=== PATIENT | female | born 1980 | race Caucasian/White ===

== ENCOUNTER → 2016-05-17 | Outpatient (CLI) | payer BC, OTHER ==
[~2016-05-17] MED LIST: AMPH20TA2 PO; FLUO20CA35 PO
== END | disposition home or self-care (01) ==
LOC: C.PAPS 08:31
PROVIDERS: ATTEND Obstetrics & Gynecology
DX: Z01.419 Encounter for gynecological examination (general) (routine) without abnormal findings (principal)

== ENCOUNTER → 2016-07-11 | Outpatient (CLI) | payer BC ==
--- NOTE | 2016-07-11 13:13 | DIAGNOSTIC IMAGING REPORT ---
THYROID ULTRASOUND HISTORY: Enlarged thyroid. COMPARISON: None. FINDINGS: Right lobe: 6.1 x 2.1 x 1.9 cm. There are few subcentimeter hypoechoic nodules with the largest in the lower pole measuring 5 mm. Left lobe: 5.3 x 1.5 x 1.5 cm. There are few subcentimeter hypoechoic nodules/cysts measuring up to 3 mm. Isthmus: 4 mm in thickness. No nodules. IMPRESSION: A few subcentimeter hypoechoic nodules/cysts measuring up to 5 mm. These do not meet sonographic criteria for biopsy. Electronically signed by: Derik Hubbard M.D. 07/11/2016 1:12 PM Dictated Date/Time: 07/11/2016 1:01 PM
== END | disposition home or self-care (01) ==
PROVIDERS: ATTEND Nurse Practitioner Adult Health
DX: E01.0 Iodine-deficiency related diffuse (endemic) goiter (principal)

== ENCOUNTER → 2016-09-10 | Outpatient (CLI) | payer BC ==
[2016-09-12 15:42] LABS: MICROSOMAL AB 1 IU/ML (<9)
== END | disposition home or self-care (01) ==
LOC: C.LABPBG 12:26
PROVIDERS: ATTEND Nurse Practitioner Adult Health
DX: E04.2 Nontoxic multinodular goiter (principal); R44.0 Auditory hallucinations

== ENCOUNTER → 2016-09-13 | Outpatient (CLI) | payer BC ==
[~2016-09-13] MED LIST changes: +GADAVIST IV PRN
--- NOTE | 2016-09-13 11:50 | DIAGNOSTIC IMAGING REPORT ---
MRI OF THE BRAIN COMBO INTERNAL AUDITORY CANAL PROTOCOL CLINICAL HISTORY: Auditory hallucinations. Tinnitus in the left ear. Headache. COMPARISON STUDY: No priors. TECHNIQUE: MRI of the brain was performed utilizing various T1 and T2-weighted sequences in the axial, sagittal, and coronal planes. Contrast-enhanced sequences were acquired following the administration of 6 cc of Gadavist. Additional high-resolution imaging through the skull base was performed both pre and postcontrast for further assessment of the internal auditory canals. FINDINGS: Brain parenchyma: The brain parenchyma is normal in appearance. A small developmental venous anomaly is incidentally noted in the right posterior parietal lobe. There is no hemorrhage or mass effect. There is no restricted diffusion to suggest acute ischemia. No enhancing mass lesion is identified on the postcontrast images. Green-white matter differentiation is preserved. No extra-axial fluid collection is seen. The cerebellar tonsils are normal in configuration. Ventricles, sulci, and cisterns: Normal in configuration. Internal auditory canals: There is no enhancing mass lesion seen in the cerebellopontine angle bilaterally. No mass or abnormal enhancement is identified along the course of the internal auditory canals. The middle ear structures are normal as visualized. Pituitary and sella: Unremarkable. Intracranial vasculature: Normal flow voids are maintained at the skull base. Orbits: The bony orbits are grossly intact. Orbital contents are normal in appearance. Sinuses and mastoids: Clear. Calvarium: Unremarkable. Cervical cord: Partially visualized cervical spinal cord is normal in morphology and signal intensity. IMPRESSION: 1. No acute intracranial abnormality. 2. Unremarkable MRI assessment of the internal auditory canals. Electronically signed by: Sammy Herrmann M.D. 09/13/2016 11:49 AM Dictated Date/Time: 09/13/2016 11:44 AM
== END | disposition home or self-care (01) ==
LOC: C.MRIBC 09:24
PROVIDERS: ATTEND Nurse Practitioner Adult Health
DX: H93.12 Tinnitus, left ear (principal); R44.0 Auditory hallucinations

== ENCOUNTER → 2016-12-11 | Outpatient (CLI) | payer BC ==
[~2016-12-11] MED LIST changes: -GADAVIST IV PRN
[2016-12-11 18:10] LABS: THYROID STIMULATING HORMONE 0.438 uIu/ml (0.300-4.500)
== END | disposition home or self-care (01) ==
LOC: C.LABPBG 14:45
PROVIDERS: ATTEND Physician Assistant
DX: E04.2 Nontoxic multinodular goiter (principal)

== ENCOUNTER → 2017-01-15 | Outpatient (CLI) | payer BC ==
--- NOTE | 2017-01-15 12:53 | DIAGNOSTIC IMAGING REPORT ---
THYROID ULTRASOUND CLINICAL HISTORY: Multinodular thyroid gland. COMPARISON STUDY: Thyroid ultrasound July 11, 2016. TECHNIQUE: Sonography of the thyroid gland was performed. FINDINGS: The right thyroid lobe measures 6 x 2 x 2 cm and the left lobe measures 5.5 x 1.5 x 1.4 cm. Several hypoechoic thyroid nodules are similar to exam of July 11, 2016, the largest of which is a 6 mm right lobe nodule. These nodules do not meet criteria for biopsy. IMPRESSION: No change in multiple subcentimeter thyroid nodules since exam of July 11, 2016. These nodules do not meet criteria for biopsy. Electronically signed by: Phi Mendoza M.D. 01/15/2017 12:52 PM Dictated Date/Time: 01/15/2017 12:50 PM
== END | disposition home or self-care (01) ==
LOC: C.ULTRBC 12:11
PROVIDERS: ATTEND Family Medicine
DX: E04.2 Nontoxic multinodular goiter (principal)

== ENCOUNTER → 2017-03-19 | Outpatient (CLI) | payer BC ==
[2017-03-19 17:37] LABS: BASO % 0.3 %; BASO ABS # 0.02 K/uL (0-0.2); COMPLETE YES; EOS % 1.4 %; HEMATOCRIT 39.6 % (37-47); IG% 0.1 %; LYMPH % 21.7 %; LYMPH ABS # 1.73 K/uL (1.2-3.4); MEAN CELL VOLUME 89.4 fL (80-100); MEAN CORPUSCULAR HEMOGLOBIN 29.6 pg (25-34); MEAN CORPUSCULAR HGB CONC 33.1 g/dl (32-36); MEAN PLATELET VOLUME 10.1 fL (7.4-10.4); MONO % 5.9 %; NEUT % 70.6 %; PLATELET COUNT 260 K/uL (130-400); RED BLOOD COUNT 4.43 M/uL (4.2-5.4); WHITE BLOOD COUNT 7.96 K/uL (4.8-10.8)
== END | disposition home or self-care (01) ==
LOC: C.LABPBG 13:13
PROVIDERS: ATTEND Nurse Practitioner Adult Health
DX: D70.9 Neutropenia, unspecified (principal)

== ENCOUNTER → 2017-03-25 | Outpatient (CLI) | payer BC | END | disposition home or self-care (01) | LOC: C.PATHSPEC 15:00 | PROVIDERS: ATTEND Obstetrics & Gynecology | DX: N93.9 Abnormal uterine and vaginal bleeding, unspecified (principal) ==

== ENCOUNTER 2017-05-06 05:48 | Observation (INO) | payer BC ==
[2017-04-29 13:14] VITALS: BMI 24.0
--- NOTE | 2017-04-29 13:40 | PAT Medication Instructions ---
Service Date Apr 29, 2017. Current Home Medication List Amphetamine-Dextroamphetamine 20MG (Adderall 20MG), 1 TAB PO TID B-Complex Vitamins (Vitamin B Complex), 1 TAB PO QAM Carbamide Peroxide (Otic) (Debrox), 3 DROPS OT HS PRN for eye irritation Cholecalciferol (Vitamin D3), 1 TAB PO QAM Ferrous Sulfate (Iron), 1 TAB PO QAM Ibuprofen (Motrin), 600 MG PO Q6H PRN for Pain Multiple Vitamins W/ Minerals (Multi For Her), 1 TAB PO QAM Sertraline (Zoloft), 50 MG PO HS Medication Instructions For Your Scheduled Surgery - Hold the following medications per your surgeon's instructions: Ibuprofen (Motrin), 600 MG PO Q6H PRN for Pain - Hold the following medications the morning of surgery: Multiple Vitamins W/ Minerals (Multi For Her), 1 TAB PO QAM Cholecalciferol (Vitamin D3), 1 TAB PO QAM Ferrous Sulfate (Iron), 1 TAB PO QAM Amphetamine-Dextroamphetamine 20MG (Adderall 20MG), 1 TAB PO TID B-Complex Vitamins (Vitamin B Complex), 1 TAB PO QAM - Take the following medications the morning of surgery: Carbamide Peroxide (Otic) (Debrox), 3 DROPS OT HS PRN for eye irritation - Take the following medications as scheduled the night before surgery: Sertraline (Zoloft), 50 MG PO HS Carbamide Peroxide (Otic) (Debrox), 3 DROPS OT HS PRN for eye irritation Amphetamine-Dextroamphetamine 20MG (Adderall 20MG), 1 TAB PO TID If you have any questions please call us at [phone] or [phone] or [phone]
[2017-05-06] VITALS (9 sets, daily range): BP systolic 102–127; BP diastolic 57–75; PULSE 60–73; TEMP 36.4–36.6; O2SAT 98–100; Ht 162.6 cm; Wt 59.0 kg
[~2017-05-06] VITALS: Ht 162.6 cm; Wt 59.0 kg
[~2017-05-06 05:48] MED LIST changes: +B-COTAB18 PO; +CARB1SOL8 OT; +CHOL1000 PO; +FERR1TAB61 PO; -FLUO20CA35 PO; +IBUP-1450 PO; +MULT1CAP6 PO; +SERT50TA PO
[2017-05-06] MEDS ORDERED: CEFAZOLIN 2000MG IV PUSH 10 ML IV SCH (06:00)
[2017-05-06] MEDS ORDERED: LACTATED RINGER'S 1000ML 1,000 ML IV SCH ×3 (06:00→11:15)
[2017-05-06] MEDS ORDERED: BUPIVACAINE 0.5 % 5 MG/1 ML MPF 30ML VIAL ONE (06:51)
[2017-05-06] MEDS ORDERED: METHYLENE BLUE 0.5% 10 ML VIAL ONE (06:51)
[2017-05-06] MEDS ORDERED: PROPOFOL IV EMULSION 10 MG/ML 20 ML VIAL IV ONE (06:58)
[2017-05-06] MEDS ORDERED: FENTANYL CITRATE INJ 50 MCG/1 ML 2 ML VIAL ONE ×2 (06:58→09:12)
[2017-05-06] MEDS ORDERED: MIDAZOLAM HCL 1 MG/ML 2ML VIAL ONE (06:58)
[2017-05-06] MEDS ORDERED: ONDANSETRON INJ 2 MG/ML 2 ML VIAL ONE (06:59)
[2017-05-06] MEDS ORDERED: NEOSTIGMINE METHYLSULFATE 5 MG/5 ML SYR ONE (06:59)
[2017-05-06] MEDS ORDERED: GLYCOPYRROLATE INJ 0.2 MG/ML VIAL ONE (06:59)
[2017-05-06] MEDS ORDERED: ROCURONIUM BROMIDE 10 MG/ML 5 ML VIAL IV ONE (06:59)
[2017-05-06] MEDS ORDERED: FENTANYL CITRATE INJ 50 MCG/1 ML 2 ML VIAL IV PRN (07:30)
[2017-05-06] MEDS ORDERED: EpHEDrine SULFATE INJ 50 MG/ML AMP IV PRN (07:30)
[2017-05-06] MEDS ORDERED: ATROPINE SULFATE 0.1 MG/ML 5ML SYR IV PRN (07:30)
[2017-05-06] MEDS ORDERED: LABETALOL HCL IV 5 MG/ML 20ML IV PRN (07:30)
[2017-05-06] MEDS ORDERED: HYDROmorphone INJ 1 MG/ML SYR IV PRN (07:30)
[2017-05-06] MEDS ORDERED: MEPERIDINE HCL 25 MG/ML CARP IV PRN (07:30)
[2017-05-06] MEDS ORDERED: ONDANSETRON INJ 2 MG/ML 2 ML VIAL IV PRN ×2 (07:30→09:30)
--- NOTE | 2017-05-06 07:30 | History & Physical Bridge Note ---
H&P Re-Evaluation Bridge Note: I have examined the patient, reviewed the History & Physical and in the interval since the performance of the History & Physical I have noted the following changes of clinical significance: No changes noted
--- NOTE | 2017-05-06 09:20 | [facility] Post Operative Brief Note ---
Immediate Operative Summary Operative Date May 06, 2017. Pre-Operative Diagnosis Menometrorhagia, Abnormal Uterine Bleeding, Chronic Pelvic Pain, Abnormal endometrial ultrasound Post-Operative Diagnosis Same as preop Procedure(s) Performed Total Laparoscopic Hysterectomy Bilateral Salpingectomy Robot Assist; Cystoscopy Surgeon Dr. Rich Operations Intelligence Surgeon(s) none Estimated Blood Loss 5 ml Findings See Below (normal uterus, tubes and ovaries bilaterally, nl liver edge and gallbladder, nl appendix. adhesions of colon to right lateral side wall. nl cystoscopy findings, nl bladder filling and normal ureteral jets. ) as noted Fluids (cc crystalloids) 1000 Specimens A. Cervix, Uterus, Bilateral Fallopian Tubes Drains william Anesthesia Type General Complication(s) none Disposition Accompanied Pt To Recover: no Disposition: Recovery Room / PACU
[2017-05-06] MEDS ORDERED: SIMETHICONE 80 MG CHEW PO PRN (09:30)
[2017-05-06] MEDS ORDERED: ACETAMINOPHEN 325 MG TAB PO PRN (09:30)
[2017-05-06] MEDS ORDERED: ACETAMINOPHEN/CODEINE 300/30MG TAB PO PRN (09:30)
[2017-05-06] MEDS ORDERED: KETOROLAC TROMETHAMINE 30 MG/ML VIAL IV. PRN (09:30)
[2017-05-06] MEDS ORDERED: IBUPROFEN 600 MG TAB PO PRN (09:30)
[2017-05-06] MEDS ORDERED: KETOROLAC TROMETHAMINE 30 MG/ML VIAL ONE (09:54)
[2017-05-06] MEDS ORDERED: IV FLUIDS COMPLETED PRN (10:15)
--- NOTE | 2017-05-06 10:26 | OPERATIVE REPORT ---
DATE OF OPERATION: 05/06/2017 PREOPERATIVE DIAGNOSES: 1. Abnormal uterine bleeding. 2. Menometrorrhagia. 3. Chronic pelvic pain. 4. Abnormal endometrial ultrasound. POSTOPERATIVE DIAGNOSES: Same. PROCEDURES: 1. Total laparoscopic hysterectomy. 2. Bilateral salpingectomies. 3. Cystoscopy. 4. Robotic assistance. Surgeon: Sissy Rich MD Mortgage Or Loan Underwriter: RASHAAD ANESTHESIA: General. IV FLUIDS: 1000 mL. ESTIMATED BLOOD LOSS: 5 mL. URINE OUTPUT: 200 mL. PROCEDURE INDICATIONS: A 36-year-old who has completed her childbearing with abnormal uterine bleeding and findings on saline hysterosonography to suggest polyps or fibroids submucosally who desires definitive surgical management. She was given all of her treatment options and desired to proceed. She had a history of being told as a child that she had possible endometriosis and has on and off chronic pelvic pain and there was a plan to evaluate the pelvis at the time of the surgery. FINDINGS: The uterus is normal, mobile in the pelvis. Normal tubes and ovaries bilaterally. No evidence of endometriosis whatsoever. Normal liver edge and gallbladder and appendix seen. Bowel somewhat distended and full of stool. The large bowel also adhesed to the right sidewall. Cystoscopy findings include normal bladder filling and normal ureteral jets. DESCRIPTION OF PROCEDURE: The patient was taken to the operating room and identified. After adequate general anesthesia was obtained, she was placed in dorsolithotomy position and prepped and draped in usual sterile fashion. Attention was turned to the patient's vagina where a weighted speculum and anterior retractor were placed after Silverio catheter was placed under sterile conditions. The cervix was grasped on its anterior lip with an Allis clamp. A single interrupted suture of 0 Vicryl was placed at 3 o'clock position. The cervix was sequentially dilated using Hegar dilators. The uterus sounded to 9 cm. The VCare uterine manipulator was gently placed through the cervical os into the uterine cavity and the balloon was inflated. The cup was tied down with suture material and then stabilized in the usual fashion. All the retractors were then removed. The attention was then turned to the patient's abdomen where a supraumbilical skin incision was made with a scalpel. The Veress needle was placed intraperitoneally with an opening pressure of 6 mmHg. A CO2 pneumoperitoneum was created. A 12 mm optical trocar was placed under direct visualization. The patient was then placed in steep Trendelenburg. The da Jorge trocar sites left and right of the midline were created by first creating skin incisions and then placing under direct visualization da Jorge trocars. A blunt probe was used to tease the bowel away from the planned operative field. The findings were as noted above. The da Jorge robot was then brought to the patient's bedside. The appropriate instrument arms were attached to the appropriate trocars. The camera was introduced. A monopolar marti was brought into instrument arm #1 and a fenestrated bipolar was brought into instrument arm #2. At this point, the surgeon went to the console. The ureters were seen coursing well below the planned operative sites. The right fallopian tube was dissected from the mesosalpinx. The uteroovarian, round ligament, broad ligament complex was then taken down sequentially using coagulation and then cutting. The anterior and posterior leaves of the broad ligament were opened up into and and the bladder flap was begun anteriorly towards the midline from the right side. The uterine artery vessels were skeletonized and then coagulated and transected. Attention was then turned to the left fallopian tube which was dissected from the mesosalpinx. The uterine ovarian, round ligament complex and broad ligament complex were further coagulated and transected. The leaves of the broad ligament were opened up on this side and the bladder flap was begun from the left to meet towards the right side. The bladder was pushed well away from the planned operative field. The uterine artery pedicles on this side was skeletonized and then coagulated. The cardinal ligament attachments were further coagulated and transected. The planned colpotomy was completely mobilized on the left side. Attention was returned to the right uterine artery pedicle where further dissection with the cardinal ligament attachments were undertaken. The colpotomy was cleared on this side. The cervix was then carved away from the upper vagina following the VCare cup using the monopolar marti. The specimen was brought out vaginally. A sponge was used to maintain pneumoperitoneum. The 2-0 V-Loc 90 suture was then passed vaginally. The #1 instrument arm was replaced with the large needle powder truck driver. The cuff was then closed in a running fashion using the suture material. Back stitches were applied. The sponge in the vagina was removed and the pneumoperitoneum was maintained. The #1 instrument arm was then removed and replaced with the scissor followed by needle powder truck driver and the needle was cut and removed from the abdomen. Suction mobile phone salesperson was brought through this site and the pelvis was irrigated. Any small bleeding sites were cauterized. Excellent hemostasis was noted. The CO2 gas was allowed to escape from the patient's abdomen and the incision lines all were hemostatic. At this point, the instruments were all removed from the abdomen, the instrument arms were removed from the trocars and the da Jorge robot was kept at the bedside. IV Methergine had been administered. A cystoscopy took place with the findings as noted above. A new Silverio catheter was then placed. At this point, the da Jorge robot was brought well away from the patient's bedside. The trocars were removed. A single interrupted suture of 0 Vicrylvwas placed at the infraumbilical incision subcutaneous tissue followed by skin closure using 4-0 Vicryl in a subcuticular fashion all the incision sites. They were injected with Marcaine and dressed with Dermabond. The patient was returned to the supine position. She was awoken from anesthesia and transferred to the recovery room in stable condition. All sponge, lap and needle counts were correct x2. I attest to the content of the Intraoperative Record and any orders documented therein. Any exceptions are noted below. LUISITOD
--- NOTE | 2017-05-06 10:27 | Anesthesiology Progress Note ---
Anesthesia Post Op Note Date & Time May 06, 2017 at 10:27 Vital Signs Pain Intensity: 3 Vital Signs Past 12 Hours Date Time Temp Pulse Resp B/P (MAP) Pulse Ox O2 Delivery O2 Flow Rate FiO2 05/06/17 10:24 62 13 100 05/06/17 10:24 64 13 05/06/17 10:20 108/64 05/06/17 10:19 61 16 05/06/17 10:19 60 16 99 05/06/17 10:15 36.8 05/06/17 10:15 102/69 05/06/17 10:14 60 17 05/06/17 10:14 59 17 100 05/06/17 10:13 57 16 05/06/17 10:13 57 16 100 05/06/17 10:10 102/70 05/06/17 10:08 64 16 100 05/06/17 10:08 64 16 05/06/17 10:05 102/69 05/06/17 10:03 53 18 05/06/17 10:03 53 18 100 05/06/17 10:02 66 14 100 05/06/17 10:02 66 14 05/06/17 10:00 114/77 05/06/17 09:57 65 16 05/06/17 09:57 66 16 100 05/06/17 09:55 111/66 05/06/17 09:52 73 17 100 05/06/17 09:52 72 17 05/06/17 09:51 67 23 100 05/06/17 09:51 68 23 05/06/17 09:50 105/71 05/06/17 09:46 75 16 05/06/17 09:46 76 16 100 05/06/17 09:45 111/68 05/06/17 09:44 65 19 100 05/06/17 09:44 66 19 05/06/17 09:40 108/69 05/06/17 09:39 74 22 100 05/06/17 09:39 74 22 05/06/17 09:35 110/69 05/06/17 09:34 77 17 05/06/17 09:34 79 17 99 05/06/17 09:31 108/72 05/06/17 09:29 75 24 05/06/17 09:29 36.6 65 20 108/72 100 Nasal Cannula 4 05/06/17 09:29 69 24 104/79 100 05/06/17 06:07 36.5 73 18 127/59 (81) 98 Room Air Notes Mental Status: alert / awake / arousable, participated in evaluation Pt Amnestic to Procedure: Yes Nausea / Vomiting: adequately controlled Pain: adequately controlled Airway Patency, RR, SpO2: stable & adequate BP & HR: stable & adequate Hydration State: stable & adequate Anesthetic Complications: no major complications apparent
[2017-05-06] MEDS ORDERED: ACET-749 PO (13:41)
--- NOTE | 2017-05-06 13:41 | Discharge Instructions ---
Discharge Instructions Date of Service May 06, 2017. Admission Reason for Admission: Menometrorhagia, Abnormal Uterine Bleeding, Chroni Discharge Discharge Diagnosis / Problem: after surgery Discharge Goals Goal(s): Routine recovery after surgery Activity Recommendations Activity Limitations: as noted below . Instructions / Follow-Up Instructions / Follow-Up POST OPERATIVE: BOWEL FUNCTION/MEDICATIONS: 1. Constipation pain and discomfort are the most common complaints 5-7 days after surgery. Points 2-6 address the things that can help. 2. Chewing gum can help stimulate the gut and help improve digestion and motility. 3. Milk of Magnesia 1-2 times per day until return of bowel function. 4. Colace is a stool softener that helps. Taking this 2-3 times per day until bowel function returns to normal is highly recommended. 5. Dulcolax is a laxative that may be used if several days have passed without a bowel movement. Alternatively Miralax may be used daily instead. 6. Drink plenty of fluids as this will also reduce constipation. 7. Narcotic pain medications will be prescribed by your physician. They are safe to use and we encourage you to use them. If you are not allergic, ibuprofen will also be prescribed. Many patients will be able to transition off of the narcotic medications to ibuprofen by postoperative day 3. ACTIVITY RECOMMENDATIONS: 1. Get plenty of rest and listen to your body. If you are tired, take a nap. 2. You may shower, but do not take a tub bath until you see your doctor at the 2 week post operative visit. 3. Absolutely NO intercourse and nothing in the vagina until you are examined by your doctor at the 8 week visit. At that visit it will be determined when such activities can be resumed. This can range from 6-12 weeks after your surgery depending on healing time. 4. The main physical activity in the first week should be walking. By the second week you can slowly increase activity. There are no limits on walking up and down stairs. 5. Do not lift more than 5-10 lbs for 4 weeks. Remember the "one-handed rule", i.e. if you can lift something with only one hand it's likely okay. 6. Minimize prestidigitator like vacuuming and exercising for 4 weeks. "Overdoing it" can lead to incisions not healing, pain and vaginal bleeding , so again, listen to your body. 7. Driving can be resumed when you feel able. Do not drive within 24 hours of taking a narcotic medication. EXPECTATIONS: 1. Vaginal spotting, bleeding and discharge are common after surgery. There may even be an odor to the discharge which is often related to sutures used in the vagina. If you experience heavy vaginal bleeding, call the office number day or night [phone]. 2. Bladder discomfort is common after surgery from the catheter. This usually resolves in 1-2 weeks. 3. By the end of the 3rd or 4th week you should be feeling much better. It may take up to 6 weeks for your energy levels to return to normal. 4. Narcotic medications have side effects such as: dizziness, headache, nausea and/or vomiting. If you suspect your pain medication is causing problems, call our office and we may be able to prescribe an alternate medication. 5. The skin incisions are often covered with a liquid bandage. This will gradually peel off over time. CALL THE OFFICE IF YOU HAVE ANY OF THE FOLLOWIN. Temperature of 101 degrees or higher. 2. Severe abdominal or pelvic pain not relieved by pain medication. 3. Persistent nausea or vomiting. 4. Increased pain with urination or difficulty urinating. 5. Bright red bleeding that soaks more than 1 pad per hour. CONTACT PHONE NUMBERS: Main Office: [phone] Surgical Nurse: [phone] extension [phone] FOLLOW-UP: Post-Operative Appointments: * Individual instructions will have been given about the timing of your first examination, but this is usually at the end of the second week home. * You will need to call the office at soon after discharge to make the appointment for your post-op check-up if it has not already been scheduled. * Additional information regarding activity, sexual intercourse and when to return to work will be given at this appointment. WE WISH YOU A SPEEDY RECOVERY! APPT WAS MADE FOR 05/20/17Saturday at 1145AM Current Hospital Diet Patient's current hospital diet: Regular Diet Discharge Diet Recommended Diet: Regular Diet Procedures Procedures Performed: Total Laparoscopic Hysterectomy Bilateral Salpingectomy Robot Assist; Cystoscopy Pending Studies Studies pending at discharge: yes List of pending studies: pathology Medical Emergencies . Who to Call and When: Medical Emergencies: If at any time you feel your situation is an emergency, please call 911 immediately. . Non-Emergent Contact Non-Emergency issues call your: Wire Coiler . . "Provider Documentation" section prepared by Sissy Rich. . VTE Core Measure Inpt VTE Proph given/why not?: SCD's [place] Drug Monitoring Program Search Results: patient reviewed within database
--- NOTE | 2017-05-06 21:19 | Discharge Summary ---
Discharge Summary Date of Service May 06, 2017. Date of discharge: May 06, 2017. Discharge Summary Admission diagnoses: Abnormal uterine bleeding, menometrorrhagia, chronic pelvic pain, abnormal endometrial ultrasound Discharge diagnoses: same Procedures: Total laparoscopic hysterectomy, bilateral salpingectomies, cystoscopy, robotic assistance Brief history and hospital course: 36 year old who has completed her childbearing with abnormal bleeding and ultrasound findings to suggest endometrial lesions who preferred definitive surgical treatment. She was aware of all of her options. Please see history and physical for more detail. She underwent the above stated procedures without incident. She had an estimated blood loss of 5cc. She had a normal postoperative course and recovery and was stable for discharge home on her postoperative day #0. She was tolerating a regular diet, voiding and ambulating without difficulty and her pain was well controlled on oral medications. She was given discharge instructions and pain medication prescriptions and was to followup in 2 weeks for postoperative check up.
== END 2017-05-06 19:15 | disposition home or self-care (01) ==
LOC: C.ACU 05:48 → C.MS4N 09:22 → ENRESERV 09:58 → C.MS4N 14:03
PROVIDERS: ADMIT Obstetrics & Gynecology; ATTEND Obstetrics & Gynecology
DX: N92.1 Excessive and frequent menstruation with irregular cycle (principal); F17.200 Nicotine dependence, unspecified, uncomplicated; F32.9 Major depressive disorder, single episode, unspecified; F90.2 Attention-deficit hyperactivity disorder, combined type; Z83.49 Family history of other endocrine, nutritional and metabolic diseases
CPT/HCPCS: 58571; S2900